=== PATIENT | female | born 1980 | race Asian ===

== ENCOUNTER 2020-03-05 09:55 | Inpatient (IN) | payer BC, OTHER ==
[~2020-03-05] VITALS: Ht 152.4 cm; Wt 71.2 kg
[2020-03-05] MEDS ORDERED: XIIDRA1 EACH OU (10:20)
--- NOTE | 2020-03-05 13:06 | NUR ---
arrived from ED via stretcher. oriented to room and call light. pt rating pain 6/10 in right upper quadrant.
--- NOTE | 2020-03-05 14:15 | NUR ---
Pt left for surgery via stretcher.
--- NOTE | 2020-03-05 14:42 | NUR ---
03/05/20 1442 Mei Robert 1438 PATIENT ARRIVES TO PACU RESTING WITH EYES CLOSED. RESP EVEN AND UNLABORED, NC AT 2 LITERS, TURNED OFF ON ARRIVAL TO PACU. PATIENT DENIES PAIN/NAUSEA.
--- NOTE | 2020-03-05 15:24 | NUR ---
PATIENT BACK TO ROOM, CLEAR LIQUID TRAY ORDERED. PATIENT MAY HAVE CLEAR LIQUIDS UNTIL MIDNIGHT, THEN NPO. PATIENT TO HAVE CHOLECYSTECTOMY TOMORROW, TO FOLLOW DR. RYAN MORAN.
[2020-03-05] MEDS ORDERED: FLAXSEED OIL1000 M1 PO (17:01)
[2020-03-05] MEDS ORDERED: FISH OIL 1,2001 EACH PO (17:01)
[2020-03-05] MEDS ORDERED: VITAMIN B-12100 MCG PO (17:01)
[2020-03-05] MEDS ORDERED: VITAMIN C1000 MG PO (17:02)
--- NOTE | 2020-03-05 17:02 | NUR ---
MED REC COMPLETE
--- NOTE | 2020-03-05 17:15 | NUR ---
IN ROOM TO ATTEMPT TO START A NEW IV. UNALBE TO GET NEW IV. PT HAD VISIOTR IN ROOM AT THIS TIME. PT DENIES ABDOMINAL PAIN OR NAUSEA AT THIS TIME.
--- NOTE | 2020-03-05 18:03 | NUR ---
pt resting in bed. denies needs at this time. call light within reach.
--- NOTE | 2020-03-05 19:09 | NUR ---
RECEIVED REPORT FROM ORQUIDEA ROMEO. pt REQUESTED CLEAR LIQUIDS, PROVIDED. WHITEBOARD UPDATED. pt REPORTED A HEADACHE, WILL CALL IF SHE WOULD LIKE PAIN MEDICATION. CALL LIGHT WITHIN REACH.
--- NOTE | 2020-03-05 20:50 | NUR ---
ROUNDED ON pt. REQUESTING PRN PAIN MEDS FOR HEADACHE BUT WISHES TO WAIT UNTIL AFTER SHE HAS AMBULATED. STEADY ON FEET. NO FURTHER REQUESTS AT THIS TIME.
--- NOTE | 2020-03-05 20:51 | NUR ---
PATIENT SITTING UP IN BEDSIDE RECLINER, REQUESTS TO AMBULATE HALLWAY. RN ALEKS AT BEDSIDE. PATIENT AMBULATES HALLWAYS AND RETURNS TO ROOM. CALL LIGHT IN REACH. NO FURTHER NEEDS AT THIS TIME.
--- NOTE | 2020-03-05 21:38 | NUR ---
pt SITTING IN CHAIR. ASSESSMENT DONE. COMPLAINED OF 8/10 HEADACHE, PRN GIVEN WITH SCHEDULED (SEE MAR). PROVIDED CLEAR LIQUIDS. NO FURTHER REQUESTS AT THIS TIME. CALL LIGHT WITHIN REACH.
--- NOTE | 2020-03-05 23:18 | NUR ---
ROUNDED ON pt. REPORTED HEADACHE "IS OKAY" REPORTED A BM, "A BIT WATERY, MEDIUM SIZE" PROVIDED A WARM BLANKET. NO FURTHER REQUESTS AT THIS TIME. CALL LIGHT WITHIN REACH.
--- NOTE | 2020-03-06 02:00 | NUR ---
pt RESTING WITH EYES CLOSED, RESPIRATIONS REGULAR AND UNLABORED. WOKE TO VOICE. VITALS AND I&O RECORDED. ASSESSMENT DONE. DENIES PAIN AT THIS TIME. CALL LIGHT WITHIN REACH.
--- NOTE | 2020-03-06 04:17 | NUR ---
ROUNDED ON pt. RESTING WITH EYES CLOSED, RESPIRATIONS REGULAR AND UNLABORED. CALL LIGHT WITHIN REACH.
--- NOTE | 2020-03-06 05:57 | NUR ---
PATIENT REQUESTED A WARM BLANKET. PATIENT GIVEN INSTRUCTIONS FOR PRE-SURGICAL CLEANSE WIPES, REQUESTS TO SLEEP FOR ANOTHER HOUR. PRE-SURGICAL WIPES AND CLEAN GOWN SET UP IN BATHROOM PER PATIENT REQUEST, PATIENT INSTRUCTED TO CALL WHEN SHE IS READY. CALL LIGHT IN REACH. RN AT BEDSIDE.
--- NOTE | 2020-03-06 05:59 | NUR ---
CALL LIGHT ON. GIVEN WIPES FOR SURGERY WITH EXPLANATORY SHEET. VITALS AND I&O RECORDED. WARM BLANKET PROVIDED. NO FURTHER REQUESTS AT THIS TIME. CALL LIGHT WITHIN REACH. pt WOULD LIKE TO SLEEP "ANOTHER HOUR" DOOR CLOSED, LIGHTS OFF.
--- NOTE | 2020-03-06 06:01 | NUR ---
pt RESTED MOST OF SHIFT. HEADACHE, PRN PAIN MED X1. IVF INFUSING. NPO AFTER MIDNIGHT. INDEPENDENT IN ROOM. GIVEN WIPES FOR SURGERY. CONSENT SIGNED AND ON CHART. USES CALL LIGHT APPROPRIATELY.
--- NOTE | 2020-03-06 08:17 | NUR ---
PT HAS BEEN UP TO THE BATHROOM, USED SURGICAL WIPES AND FRESH GROWN PLACED, CLEAN LINE ON BED. PT HAS BEEN NPO SINCE MIDNIGHT. SHE HAS BEEN FREELY MOVING ABOUT HER ROOM, PT IS VERY PRIVATE AND DOES NOT WANT STAFF HELP AT THIS TIME. BUT SHE WILLING TO TAKE HELP WHEN SHE FEELS SHE NEEDS IT.
--- NOTE | 2020-03-06 10:33 | NUR ---
PATIENT UP IN ROOM, SAT BEDSIDE FOR VITALS. VITALS AND I&OS DONE AND CHARTED. PATIENT REQUESTED NEW GOWN SHE SNEEZED A COUPLE TIME ONTO RIGHT SLEEVE OF THE ONE SHE HAD ON. CALL LIGHT WITHIN REACH. NO OTHER NEEDS
--- NOTE | 2020-03-06 10:42 | NUR ---
PT UP ABOUT IN THE ROOM NO C/O'S AT THIS TIME.
--- NOTE | 2020-03-06 11:20 | NUR ---
Spoke with Jennifer, who is well known to me. She will have surgery today. May or may not go home depending on how she feels. She lives alone in an apartment. She has friends she can call for asssitance. Denies needs to go home and does not use any DME.
--- NOTE | 2020-03-06 11:30 | NUR ---
PT LEFT TO GO TO OR AT THIS TIME. PT HAS VOIDED BEFORE.
--- NOTE | 2020-03-06 12:26 | NUR ---
PT TAKEN TO OR WILL FOLLOW
--- NOTE | 2020-03-06 14:35 | NUR ---
03/06/20 1435 Cherry Laureano 1427- PT PT PACU IN SUPINE POSITION. EYES CLOSED. RESPONDS TO VERBAL AND TACTILE STIMULUS AND FALLS QUICKLY BACK TO SLEEP. BREATHING EASY AND UNLABORED ON 6 L O2 VIA SIMPLE MASK. 5 LAP SITES CLOSED WITH STERI STRIPS INTACT AND SCANT DRAINAGE. SCDS ON. 1433- PT RESPONDS TO VERBAL STIMULI. STATES SHE IS COMFORTABLE. NODS HEAD APPROPRIATELY. BREATHING EASY AND UNLABORED. O2 TITRATED DOWN TO ROOM AIR. WILL CONTINUE TO MONITOR.
--- NOTE | 2020-03-06 14:51 | HP ---
[facility] [address] [place], [place] [address] Signed ADMISSION DATE: 03/05/2020 REASON FOR ADMISSION: Persistent abdominal pain, substernal burning and dehydration. 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 She called me last night, went home from work and noting that she was feeling poorly with upper abdominal pain, nausea, and inability to tolerate solid food. She was able to tolerate clear liquids, however. She wished to be evaluated today in the office and that was planned for this afternoon, however, she was feeling lightheaded and thought she might "pass out" and presented instead to the emergency room where she was thoroughly evaluated by Dr. Dangelo. Her complaints of pain have been in the right subcostal area radiating to the right lateral abdominal area, but not into this posterior thoracic area per se. She had evaluation for biliary disease by me in 2014, at which time an ultrasound was performed showing a "gallbladder polyp" and a CCK HIDA test was performed showing a normal ejection fraction, uncertain if there was reproduction of symptoms. The patient has concurrent symptoms of epigastric pain and what sounds like substernal burning pain. She episodically takes Prilosec, which is sometimes helpful to her. She has never taken it for very long. She does not really like to take medications if she can help it. PAST MEDICAL HISTORY: Unremarkable other than mild obesity. REVIEW OF SYSTEMS: She denies any shortness of breath or chest pain, has had no dysphagia, hematemesis, hematuria or blood per rectum. Her ultrasound performed in the emergency room today shows an unchanged gallbladder ultrasound with a 7 mm "gallbladder polyp." No sign of thickening or pericholecystic fluid. Biliary tree is normal. Liver is normal. Beta-hCG is negative. PHYSICAL EXAMINATION: GENERAL: Pleasant [place]or[place] woman, who does not look systemically toxic. HEENT: She has mildly dry mucous membranes. She was encountered beginning to sip on a chicken broth that was given to her in the emergency room. She did not have much at all Electronically Signed By: YAO DAVIS MD 03/06/20 1451 PATIENT NAME: NAIMA ANDERSEN HISTORY AND PHYSICAL DATE OF : 80 REPORT #: [id number] PHYSICIAN: YAO DAVIS MD PCP: KIRT YOST REPORT IS CONFIDENTIAL AND NOT TO BE RELEASED WITHOUT AUTHORIZATION [facility] [address] [place], [place] [address] Signed from it. NECK: Trachea is midline. CHEST: Shows normal respiratory excursion. CARDIOVASCULAR: Pulses regular. ABDOMEN: Somewhat obese, but soft. There is mild tenderness in the epigastric and right subcostal area. No peritonitis proper. She has no ascites. EXTREMITIES: Show no clubbing, cyanosis, or edema. LABORATORY STUDIES: Show white count of only 4.7, hematocrit 42.5, platelets 213,000. Chem profile shows normal electrolytes. Creatinine is 0.71. Liver enzymes appear normal. Beta-hCG is negative. Lipase is 21 (normal). Urinalysis shows specific gravity 1.002, otherwise normal. Urine bacteria are negative. SEROLOGY: COVID-19 is pending. DIAGNOSTIC DATA: Gallbladder ultrasound report, as noted by Dr. Aparicio shows no gallbladder wall thickening or gallstones. Negative Pantoja sign clinically and near the gallbladder neck is a 7 mm gallbladder polyp. It is unchanged in size compared to previous ultrasound dated 2012. Review of previous imaging including a CCK HIDA test performed in March of [address] Ling, was a 30-minute ejection fraction of 71%. There was no note made of symptoms yes or no on that study. ASSESSMENT AND PLAN: Most likely the patient does have biliary disease. Gallbladder polyps are typically adherent noncalcified, non-shadowing gallstones and although not likely to be causing obstructive process to the gallbladder or often a sign of a chronic inflammatory process of the gallbladder itself. I discussed this with the patient. She does have some conflicting symptoms of reflux, for which she has had benefit with Prilosec, but she takes it only on an episodic basis. She has no associated dysphagia. She lives alone and has been dehydrated and feeling like she would pass out. I think it is probable that her gallbladder is a problem. Rather than make consideration for repeat CCK HIDA test or other such imaging study, better to perform upper endoscopy to assess for peptic disease, H pylori, reflux, and so on. If that is present, then intensive and persistent management with H2 soraya and/or PPI medication would be undertaken. If that is entirely normal, strong consideration might be made for cholecystectomy preferred by laparoscopic approach, possibly tomorrow. The risks of bleeding, infection, and perforation related to upper endoscopy was Electronically Signed By: YAO DAVIS MD 03/06/20 3968 PATIENT NAME: NAIMA ANDERSEN HISTORY AND PHYSICAL DATE OF : [birth year] REPORT #: [id number] PHYSICIAN: YAO DAVIS MD PCP: KIRT YOST REPORT IS CONFIDENTIAL AND NOT TO BE RELEASED WITHOUT AUTHORIZATION [address] [address] Signed reviewed with her. She had been given some chicken broth in the emergency room, but only a small amount was consumed, hardly any really and had two crackers this morning. I believe, she would be safe for endoscopy in the late afternoon. In the meantime, we will keep n.p.o., give IV fluids, Pepcid IV, anticipating endoscopy and other interventions as appropriate. MD CARLO Cronin/JAEL /[id number] cc: Jeovany Dangelo MD Copies: JOEVANY ADNGELO MD ~ Electronically Signed By: YAO DAVIS MD 03/06/20 1451 PATIENT NAME: NAIMA ANDERSEN HISTORY AND PHYSICAL DATE OF : 80 REPORT #: [id number] PHYSICIAN: YAO DAVIS MD PCP: KIRT YOST REPORT IS CONFIDENTIAL AND NOT TO BE RELEASED WITHOUT AUTHORIZATION
--- NOTE | 2020-03-06 14:51 | OR ---
[facility] [address] [place], [place] [address] Signed DATE OF OPERATION: 03/05/2020 SURGEON: Yao Davis MD PREOPERATIVE DIAGNOSES: Right upper abdominal and epigastric pain, equivocal reflux-type symptoms, gallbladder ultrasound with "gallbladder polyp." POSTOPERATIVE DIAGNOSIS: Normal-appearing esophagus, stomach, and duodenum. PROCEDURE: Esophagogastroduodenoscopy with biopsy. ANESTHESIA: Intravenous sedation with fentanyl 100 mcg and versed 3 mg. 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 For the past several years (at least until 2014), she has had episodic upper abdominal pain. Evaluation in the past includes an ultrasound of the gallbladder, which showed a 7 mm gallbladder polyp (more likely nonopacified stone) and a normal ejection CCK HIDA test of 70%. The patient has episodic epigastric and upper abdominal pain including the right subcostal area. She has always clinically been suspicious for biliary disease in my evaluation. She has been prescribed Prilosec in the past, which she takes episodically and sometimes with benefit. She presented to the emergency room today having a feeling like she was "going to pass out" related to pain and so forth. Evaluation in the emergency room by Dr. Dangelo showed her to have a persistent gallbladder polyp in the infundibulum of the gallbladder, 7 mm in size. No sign of pericholecystic fluid or thickening of the gallbladder wall. Her symptoms were suggestive somewhat of peptic disease or reflux, even though I think more likely she has a biliary problem with accelerating symptoms lately. She has been admitted, fluid resuscitated, and is now to undergo upper endoscopy to better characterize the problem. If the upper endoscopy is normal, consideration will be made more strongly for cholecystectomy. FINDINGS: Esophagus, stomach, and duodenum were essentially normal. The flap valve was good. The esophageal mucosa was absolutely normal. CLOtest was equivocal at 10 minutes Electronically Signed By: YAO DAVIS MD 03/06/20 1451 PATIENT NAME: NAIMA ANDERSEN OPERATIVE REPORT DATE OF : 80 REPORT #: [id number] PHYSICIAN: YAO DAVIS MD PCP: KIRT YOST REPORT IS CONFIDENTIAL AND NOT TO BE RELEASED WITHOUT AUTHORIZATION [facility] [address] [place] [address] Signed postprocedure. There was no sign of obvious ulcer, erosion, neoplasm, or other problem. The duodenum was normal. PROCEDURE IN DETAIL: The patient was brought to the endoscopy suite and placed in lateral decubitus position after undergoing lidocaine hypopharyngeal anesthesia. Intravenous sedation was induced with fentanyl and Versed with full cardiopulmonary monitoring. A bite block was placed. An Olympus video upper endoscope was passed in the hypopharynx. The vocal cords appeared normal. The scope was advanced to the esophagus without problem throughout its length, it was entirely normal. Stomach was insufflated with air. Rugal folds appeared normal as did the antral motility. The pylorus was normal. Scope was passed through into the duodenum, which was normal. Biopsies were obtained nevertheless to assess for celiac disease. The scope was withdrawn and biopsies were then taken of the antrum and proximal stomach for both GUILLERMO and pathologic testing. Retroflexed view showed a normal flap valve. The scope was straightened, withdrawn into the distal esophagus. The mucosa was entirely normal. Narrow band imaging confirmed this as well. Biopsies were taken nevertheless. Further withdrawal of scope showed no other abnormalities. The scope was removed. The patient was taken to recovery room in good condition. CONCLUDING DIAGNOSIS: Normal-appearing upper endoscopy. Quite unlikely her symptoms recently have been peptic related. We await the CLOtest of course. Consideration will be made for laparoscopic cholecystectomy at the earliest opportunity tomorrow. We will review her options later today. MD CARLO Cronin/JAEL /[id number] cc: DEVORA Gloria MD Copies: KIRT YOST Electronically Signed By: YAO DAVIS MD 03/06/20 1451 PATIENT NAME: NAIMA ANDERSEN OPERATIVE REPORT DATE OF : 80 REPORT #: [id number] PHYSICIAN: YAO DAVIS MD PCP: KIRT YOST REPORT IS CONFIDENTIAL AND NOT TO BE RELEASED WITHOUT AUTHORIZATION [facility] [address] [place] [address] Signed TODD DANGELO MD ~ Electronically Signed By: YAO DAVIS MD 03/06/20 1451 PATIENT NAME: NAIMA ANDERSEN OPERATIVE REPORT DATE OF : 80 REPORT #: [id number] PHYSICIAN: YAO DAVIS MD PCP: KIRT YOST REPORT IS CONFIDENTIAL AND NOT TO BE RELEASED WITHOUT AUTHORIZATION
--- NOTE | 2020-03-06 15:05 | PATH ---
[facility] [address] [place], [place] [address] Signed SPECIMEN(S): A DUODENUM SPECIMEN(S): B ANTRUM/ANTRAL BIOPSY SPECIMEN(S): C ESOPHAGEAL BIOPSY SPECIMEN SOURCE: A. DUODENUM B. ANTRUM/ANTRAL BIOPSY C. ESOPHAGEAL BIOPSY CLINICAL HISTORY: Nausea; bloating. Post-op: Normal exam. MICROSCOPIC DESCRIPTION: Histologic sections of all submitted blocks are examined by light microscopy. These findings, together with the gross examination, support the pathologic diagnosis. FINAL PATHOLOGIC DIAGNOSIS: A. Duodenum, biopsy: - Duodenal mucosa with no histopathologic abnormality. - Negative for increased intraepithelial lymphocytes. - Negative for dysplasia or malignancy. B. Stomach, antrum, biopsy: - Oxyntic mucosa with no histopathologic abnormality. - Negative for Helicobacter organisms on HE stain. - Negative for dysplasia or malignancy. C. Esophagus, biopsy: - Squamous mucosa with minimal chronic inflammation. - Negative for intestinal metaplasia, dysplasia or malignancy. NAL:mfr:C2NR GROSS DESCRIPTION: Three specimens are received in three containers, labeled "EF." A. The specimen, labeled "EF, duodenal biopsy," is received in formalin and consists of one garcía soft tissue fragment(s) that measure 0.3 cm in greatest dimension. The specimen is entirely submitted in cassette (A1). B. The specimen, labeled "EF, antrum biopsy," is received in formalin and consists of one garcía soft tissue fragment(s) that measure 0.3 cm in greatest dimension. The specimen is entirely submitted in cassette (B1). C. The specimen, labeled "EF, distal esophagus biopsy," is received in PATIENT NAME: NAIMA ANDERSEN PATHOLOGY DATE OF : 80 REPORT #: [id number] PHYSICIAN: PRASHANT ZAMARRIPA PCP: KIRT YOST REPORT IS CONFIDENTIAL AND NOT TO BE RELEASED WITHOUT AUTHORIZATION [facility] [address] [place] [address] Signed formalin and consists of two garcía soft tissue fragment(s) that measure 0.2 cm in greatest dimension. The specimen is entirely submitted in cassette (C1). JS (under the direct supervision of a pathologist) The Gross Description was prepared using a voice recognition system. The report was reviewed for accuracy; however, sound-alike word errors, addition and/or deletions may occur. If there is any question about this report, please contact Client Services. PERFORMING LABORATORY: The technical component was performed by [facility] [address] (Manager Talent: Vi Oseguera MD; CLIA# [id number]). Professional interpretation was performed by [employer] [facility], [address] [place] [id number] (CLIA# [id number]). Diagnostician: Helena Velasco MD Pathologist Electronically Signed 03/06/2020 Copies: ~ PATIENT NAME: NAIMA ANDERSEN PATHOLOGY DATE OF : 80 REPORT #: [id number] PHYSICIAN: PRASHANT ZAMARRIPA PCP: KIRT YOST REPORT IS CONFIDENTIAL AND NOT TO BE RELEASED WITHOUT AUTHORIZATION
--- NOTE | 2020-03-06 15:49 | NUR ---
PT RETURNED FRO PACU AND AWAKE AND ALERT FOR A PSOT-OP. PT C/O NAUSEA AND PAIN MEDICATED WITH 4MG ZOFRAN AND 2MG MORPHINE FOR PAIN 04/03. SSTRIPS IN PLACE WITH SOME RED IN COLOR DRAINAGE AT THE [place] AREA.
--- NOTE | 2020-03-06 16:03 | NUR ---
PT APPEARS TO BE SLEEPING AND RESTING COMFORTABLE AT THIS TIME. SPO2 92% ON ROOM AIR AT THIS TIME.
--- NOTE | 2020-03-06 16:45 | NUR ---
PT RETURNED FOR PACU AND IS AWAKE AND WAS MEDICATED WITH 4MG ZOFRAN AND 2MG MORPHINE, SHE WAS ABLE TO EAT SOME ICE CHIPS.
--- NOTE | 2020-03-06 16:45 | NUR ---
PT WANTED TO SIT AT THE EDGE OF THE BED, DID WELL WITH GETTING UP TO THE EDGE AND SHE WANTED A PULL-UP ON AND STOOD, FRESH GROWN ON AND SHE WAS ETTING SOME ICE CHIPS. ALSO MEDICATED WITH 2MG MORPHINE FOR HER ACTIVITY.
--- NOTE | 2020-03-06 17:42 | NUR ---
PT REMAINS AT THE EDGE OF THE BED AND FREIND INTO VISIT AT THIS TIME. PT DOING OKAY NO C/O'S
--- NOTE | 2020-03-06 17:47 | NUR ---
PATENT SITTING BEDSIDE WORKING ON CUP OF ICE. VITALS AND I&OS DONE AND CHARTED. ORQUIDEA SALAZAR ORDERED DINNER FOR PATIENT. CALL LIGHT IN REACH NO OTHER NEEDS. VISITOR IN ROOM
--- NOTE | 2020-03-06 17:54 | NUR ---
PT REMAINS SITTING UP AT THE EDGE OF THE BED, SHE WANTED TO CHICKEN NOODLE SOUP FOR DINNER. PT HAS BEEN EATTING ICE CHIPS WITH NO N/V NOTED.
--- NOTE | 2020-03-06 18:37 | NUR ---
PT HAS BEEN UP TO THE BATHROOM VOIDED AND BACK TO BED. AMBULATED WITHOUT ASSISTANCE. ATE HER CHICKEN NODDLE SOUP. AND IS TAKING PO ORALS WELL. JUSICE GIVEN AND ICE WATER.
--- NOTE | 2020-03-06 19:26 | NUR ---
ROUNDED ON pt. REPORTED 5/10 PAIN. PRN GIVEN (SEE MAR). EDUCATED ON PAIN MANAGEMENT. LAP SITE INTACT AND DRY DRAINAGE NOTED. NO REQUESTS AT THIS TIME. CALL LIGHT WITHIIN REACH. POST OP VITALS RECORDED.
--- NOTE | 2020-03-06 22:02 | NUR ---
ASSESSMENT DONE. NO CHANGES IN LAP SITES. pt REPORTED 0/10 PAIN AT REST, 5/10 PAIN WHEN MOVING. MEDICATIONS GIVEN (SEE MAR). pt UP TO VOID AND AMBULATING IN FAROOQ WITH HOTEL RECREATIONAL FACILITIES MANAGER.
--- NOTE | 2020-03-06 23:01 | NUR ---
VITALS AND I&OS DONE AND CHARTED. PER PT REQUEST I WALKED WITH HER AROUND MED SURG FOR 1 LAP. GOT HER BACK INTO BED.
--- NOTE | 2020-03-06 23:04 | NUR ---
PER PT REQUEST I WALKED AROUND MED SURG FLOOR FOR 3 LAPS. GOT PT BACK INTO BED PUT SCD'S ON . GOT HER MORE TISSUES. BEDSIDE TABLE AND CALL LIGHT IN REACH. PT NEEDS NOTHING MORE AT THIS TIME.
--- NOTE | 2020-03-07 00:20 | NUR ---
ROUNDED ON pt. RESTING WITH EYES CLOSED, RESPIRATIONS REGULAR AND UNLABORED. CALL LIGHT WITHIN REACH.
--- NOTE | 2020-03-07 01:07 | NUR ---
CALL LIGHT ON. IV PUMP BEEPING, NEW BAG OF FLUIDS HUNG (SEE MAR). pt DENIES PAIN AT REST. VITALS AND I&O RECORDED. pt UP TO VOID. AMBULATING IN FAROOQ WITH CUSTOMS DIRECTOR.
--- NOTE | 2020-03-07 01:26 | NUR ---
VITALS AND I&OS DONE AND CHARTED. STOOD BY PT WENT TO THE BATHROOM. ALSO WALKED 5 LAPS AROUND MEDSURG FLOOR WITH PT PER HER REQUEST. SCD'S PUT BACK ON AND TWO WARM BLANKETS GIVEN. BEDSIDE TABLE AND CALL LIGHT IN REACH. PT NEEDS NOTHING MORE AT THIS TIME.
--- NOTE | 2020-03-07 01:39 | NUR ---
pt REQUESTED PRN PAIN MEDS, GIVEN (SEE MAR). pt RESTING IN BED. ASSESSMENT DONE. NO FURTHER REQUESTS AT THIS TIME. CALL LIGHT WITHIN REACH.
--- NOTE | 2020-03-07 03:36 | NUR ---
ROUNDED ON pt. RESTING WITH EYES CLOSED, RESPIRATIONS REGULAR AND UNLABORED. CALL LIGHT WITHIN REACH.
--- NOTE | 2020-03-07 06:40 | NUR ---
VITALS AND I&OS DONE AND CHARTED. STOOD BY PT USED THE BATHROOM. ORQUIDEA FINK WAS IN THE ROOM WHEN I LEFT.
--- NOTE | 2020-03-07 06:44 | NUR ---
ROUNDED ON pt. REPORTED 5/10 PAIN, PRN MEDICATION GIVEN (SEE MAR). LAP SITES UNCHANGED. CALL LIGHT WITHIN REACH.
--- NOTE | 2020-03-07 06:45 | NUR ---
pt RESTED ON AND OFF DURING SHIFT. AMBULATED IN HALLS MULTIPLE TIMES. BOWEL TONES ACTIVE. REPORTS PASSING GAS. PAIN CONTROLLED WITH PRN MEDS X4. LAP SITES INTACT HAVE DRY DRAINAGE. IVF INFUSING. SBA. USES CALL LIGHT APPROPRIATELY.
--- NOTE | 2020-03-07 07:35 | NUR ---
PATIENT SITTING UP IN CHAIR. IV WRAPPED. SETS UP BATHROOM FOR SHOWER. WARM BLANKETS PROVIDED. CALL LIGHT WITHIN REACH. NO OTHER NEEDS AT THIS TIME
--- NOTE | 2020-03-07 08:02 | NUR ---
AWAKE EARLY, INTO SHOWER, IN GOOD SPIRITS THIS AM, HOPES TO GO HOME, PAIN CONTROLLED, ACTIVE AND MOVING WELL, TOLERATING DIET. DENIES ANY CONCERNS OR NEEDS.
--- NOTE | 2020-03-07 09:37 | NUR ---
PATIENT SITTING UP IN CHAIR. VITAL SIGNS AND I&O DONE. CALL LIGHT WITHIN REACH. NO OTHER NEEDS AT THIS TIME
[2020-03-07] MEDS ORDERED: IBUPROFEN600 MG PO (12:14)
[2020-03-07] MEDS ORDERED: TYLENOL EXTRA500 MG PO (12:14)
[2020-03-07] MEDS ORDERED: OXYCODON-ACETA1 EAC2 PO (12:14)
--- NOTE | 2020-03-07 12:52 | OR ---
[facility] [address] [place], [place] [address] Signed DATE OF OPERATION: 03/06/2020 SURGEON: Yao Davis MD PREOPERATIVE DIAGNOSIS: [id number] calculous cholecystitis. POSTOPERATIVE DIAGNOSIS: Gdghg-gy-bngnjhb calculous cholecystitis. PROCEDURES: 1. Laparoscopic cholecystectomy with intraoperative cholangiogram. 2. Surgeon-directed fluoroscopy. ANESTHESIA: General endotracheal; Yao Damon CRNA and Fox Earl CRNA, and local 20 mL of 0.25% Marcaine with epinephrine. 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 She has had several years going back to at least 2014 of episodic right upper abdominal and epigastric pain. Evaluation in the past has included a gallbladder ultrasound and CCK HIDA test, which were normal except for a "gallbladder polyp." The patient was not persistently troubled by symptoms, however, was admitted to the hospital after evaluation by me from her emergency room visit yesterday with rather severe epigastric and right subcostal pain with some radiation into the right lateral abdominal wall. The patient also described what sounded like reflux disease. She was admitted by me, underwent upper endoscopy yesterday showing perfectly normal esophagus, stomach, and duodenum. An ultrasound had been repeated through the emergency room yesterday, which showed similar findings as to the past including a normal gallbladder wall, but with a 7 mm "gallbladder polyp." It is my presumption, given her symptoms and findings on ultrasound, and known course of illness over the past 5 years that this does represent vedzb-sj-ijneqmm calculous cholecystitis. On that basis, she has been recommended to consider laparoscopic cholecystectomy with cholangiogram, possible open procedure. She understands the risks of bleeding, infection, bile duct injury, and most importantly failure to cure her symptoms depending on findings. She understands and she wished to proceed. Electronically Signed By: YAO DAVIS MD 03/07/20 1252 PATIENT NAME: NAIMA ANDERSEN OPERATIVE REPORT DATE OF : 80 REPORT #: [id number] PHYSICIAN: YAO DAVIS MD PCP: KIRT YOST REPORT IS CONFIDENTIAL AND NOT TO BE RELEASED WITHOUT AUTHORIZATION [facility] [address] [place], [place] [address] Signed FINDINGS: The liver was normal. The gallbladder was edematous and chronically inflamed. There was no gangrenous change by any means. The uterus, fundus appeared normal. The gallbladder once excised, showed cholesterol stone debris and the polyp was found indeed to be a cholesterol aggregate (cholesterol polyp or adherent noncalcified stone). Cholangiogram was normal. DESCRIPTION OF PROCEDURE: The patient was taken to the operating room, given a general endotracheal anesthetic. Preoperative antibiotic Ancef was given. Sequential compression device stockings were used. After general endotracheal anesthesia was induced, the abdomen was clipped and prepared with a chlorhexidine solution and draped sterilely. An infraumbilical incision was made and using an open Carmelo cannula technique pneumoperitoneum was achieved to a level of 14 mmHg of carbon dioxide gas. Intraabdominal inspection showed no sign of ascites or carcinomatosis. The liver appeared normal. The gallbladder was somewhat distended and edematous and acutely inflamed, but not severely so. Three additional trocars were placed in usual configuration in the subxiphoid, right midclavicular, and right anterior axillary line. The gallbladder was elevated cephalad and retracted laterally. Using blunt and electrocautery dissection, the triangle of Calot was dissected free, identifying well the cystic artery and cystic duct. A clip was applied across gallbladder cystic duct junction and a transverse choledochotomy made in the cystic duct. Using an Dougherty type cholangiocatheter, intraoperative cholangiography was undertaken with surgeon-directed fluoroscopy showing free flow of contrast in biliary tree with prompt emptying into the duodenum. The catheter was removed and the cystic duct was triply clipped and divided, and the gallbladder dissected free in a retrograde fashion using electrocautery. Entry into the gallbladder allowed for spillage of some dark bile, but no spillage of stones per se. The gallbladder was extracted through the infraumbilical port site, securing the rent in the gallbladder, opened on the back table and found to have chronic inflammatory change of the mucosa and a fair amount of cholesterol debris (non-adherent stones). Irrigation was undertaken in subhepatic space. Excess irrigation fluid was suctioned free. The trocars were removed under direct visualization showing no sign of bleeding. The infraumbilical fascial incision was reapproximated with interrupted 0 Vicryl suture as well as a running 0 PDS suture. A 20 mL of 0.25% Marcaine with epinephrine was injected locally. The skin was closed with interrupted 3-0 Vicryl. Steri-Strips were applied and she was ultimately extubated and transferred to recovery room in good condition. Sponge, needle, and counts reported as correct x3. Electronically Signed By: YAO DAVIS MD 03/07/20 1252 PATIENT NAME: NAIMA ANDERSEN OPERATIVE REPORT DATE OF : 80 REPORT #: [id number] PHYSICIAN: YAO DAVIS MD PCP: KIRT YOST REPORT IS CONFIDENTIAL AND NOT TO BE RELEASED WITHOUT AUTHORIZATION [facility] [address] [place] [address] Signed Yao Davis MD /JAEL /[id number] cc: DEVORA Gloria MD Copies: KIRT YOST WILLIAM S MD ~ Electronically Signed By: YAO DAVIS MD 03/07/20 1252 PATIENT NAME: NAIMA ANDERSEN OPERATIVE REPORT DATE OF : 80 REPORT #: [id number] PHYSICIAN: YAO DAVIS MD PCP: KIRT YOST REPORT IS CONFIDENTIAL AND NOT TO BE RELEASED WITHOUT AUTHORIZATION
--- NOTE | 2020-03-07 13:14 | NUR ---
PATIENT SITTING UP IN BED. VITAL SIGNS AND I&O DONE BEFORE PATIENT WAS DISCHARGED FROM THE UNIT
--- NOTE | 2020-03-07 13:20 | NUR ---
DISCHARGE INSTRUCTIONS REVIEWED WITH PATIENT, VERBALIZES UNDERSTANDING OF MEDICATIONS AND FOLLOWUP APPOINTMENT, DC TO HOME AT THIS TIME.
--- NOTE | 2020-03-09 11:42 | PATH ---
[facility] [address] [facility] [place], [place] [address] Signed SPECIMEN(S): A GALLBLADDER AND STONES SPECIMEN SOURCE: A. GALLBLADDER AND STONES CLINICAL HISTORY: Abdominal pain. FINAL PATHOLOGIC DIAGNOSIS: Gallbladder, cholecystectomy: - Chronic cholecystitis with cholesterol polyps. NAL:emb:C2NR MICROSCOPIC EXAMINATION: Histologic sections of all submitted blocks are examined by light microscopy. These findings, together with the gross examination, support the pathologic diagnosis. GROSS DESCRIPTION: The specimen, labeled "EF," and designated on the requisition "gallbladder plus stones," is received in formalin and consists of Specimen: Briefly opened gallbladder. Dimensions: 6.7 x 2.5 x 1.0 cm. Serosa: [place]-garcía to green garcía and smooth. Cystic Duct: unobstructed. Calculi: Not grossly identified. Mucosa: Green brown and velvety. Wall thickness: 0.3 cm. Lymph node: No pericystic lymph nodes are grossly identified. Additional: Multiple yellow-garcía bosselated soft to friable polypoid lesions (ranging in size from 0.1-0.7 cm) with the closest located 1.7 cm from the cystic duct margin. Sales Assistant Displays sections are submitted in cassette (A1). AC (under the direct supervision of a pathologist) The Gross Description was prepared using a voice recognition system. The report was reviewed for accuracy; however, sound-alike word errors, addition and/or deletions may occur. If there is any question about this report, please contact Client Services. PERFORMING LABORATORY: The technical component was performed by [employer], Jacques Begum, PATIENT NAME: NAIMA ANDERSEN PATHOLOGY DATE OF : 80 REPORT #: [id number] PHYSICIAN: PRASHANT ZAMARRIPA PCP: KIRT YOST REPORT IS CONFIDENTIAL AND NOT TO BE RELEASED WITHOUT AUTHORIZATION [facility] [address] [place], [place] [address] [place] [address] (Canvas Repairer: Vi Oseguera MD; CLIA# [id number]). Professional interpretation was performed by [facility], [address] [address] (CLIA# [id number]). Diagnostician: Helena Velasco MD Pathologist Electronically Signed 03/09/2020 Copies: ~ PATIENT NAME: NAIMA ANDERSEN PATHOLOGY DATE OF : 80 REPORT #: [id number] PHYSICIAN: PRASHANT ZAMARRIPA PCP: KIRT YOST REPORT IS CONFIDENTIAL AND NOT TO BE RELEASED WITHOUT AUTHORIZATION
--- NOTE | 2020-03-10 10:11 | DS ---
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 She called in the night prior to her presentation to the emergency room as she had gone home from work, not feeling well with upper abdominal pain, nausea, and feeling like she might "pass out." She was planning to be evaluated in my office the day of admission, but felt worse and presented to the emergency room, where she was thoroughly evaluated by Dr. Dangelo. Her complaints of pain have been in the right subcostal area radiating to the right lateral abdominal area as well as some substernal burning pain and epigastric pain. She has undergone biliary evaluation in 2014, which at that time included ultrasound showing a gallbladder polyp and a CCK HIDA test performed showing a normal ejection fraction. Her examination in the emergency room by me showed her to be not in her typical way, and although not systemically toxic. She had dry mucous membranes and could not appear to be well on that basis. She is admitted for further evaluation and care. PERTINENT PHYSICAL EXAMINATION: GENERAL: Pleasant, [place] woman, who did not look systemically toxic. HEENT: She had mildly dry mucous membranes. NECK: Trachea is midline. CHEST: Clear. HEART: Regular, without murmur. ABDOMEN: Obese, but soft. There is mild tenderness in the epigastric and right subcostal area. No peritonitis proper. She had no ascites. LABORATORY DATA: White count was only 4.7, hematocrit 42.5, and platelets 213,000. Chem profile was normal. Creatinine 0.71. Liver enzymes normal. Beta-hCG negative. COVID testing was pending. HOSPITAL COURSE: An ultrasound had been performed under the direction of Dr. Dangelo and interpreted by Dr. Aparicio, showing no gallbladder wall thickening or gallstones. It is noted a CCK-HIDA test performed in March of 2015 showed an ejection fraction at 30 minutes of 71%. She had an unchanged gallbladder on the ultrasound with a 7 mm "polyp." Electronically Signed By: YAO DAVIS MD 03/10/20 1011 PATIENT NAME: NAIMA ANDERSEN DISCHARGE SUMMARY DATE OF : 80 REPORT #: [id number] PHYSICIAN: YAO DAVIS MD PCP: KIRT YOST REPORT IS CONFIDENTIAL AND NOT TO BE RELEASED WITHOUT AUTHORIZATION [facility] [address] [place], [place] [address] Signed HOSPITAL COURSE: She was admitted, and strongly this represented biliary disease despite the aforementioned findings. Since, she did have what sounded like substernal burning epigastric pain, she underwent upper endoscopy. This was found to be completely normal including the esophagus, stomach, and duodenum. She was given intravenous fluids and consideration was made for cholecystectomy to be performed. On March 06, 2020, she underwent laparoscopic cholecystectomy with intraoperative cholangiogram. Indeed, the gallbladder did look to be inflamed. The mucosa had non-adherent cholesterol type stone debris. Cholangiogram was normal. The liver was entirely normal. The fundus of the uterus was normal. Postoperatively, she did quite well. She had marked improvement of her symptoms, and by the time of discharge she is ambulating well, tolerating a regular diet, has incisional pain well controlled with oral analgesics. FOLLOWUP PLAN: She is to return to see me in a month or so in the office. She will be discharged with Motrin, Tylenol, and a small amount of Percocet as needed. As regard to her work as a physical , she does a fair amount of lifting, including patient lifting therefore an excuse for a work will be made for two weeks that she can present to Human Resources. DISCHARGE DIAGNOSES: 1. Acute calculous cholecystitis, status post laparoscopic cholecystectomy with intraoperative cholangiogram. 2. Upper abdominal symptoms with no finding on upper endoscopy to show peptic disease. 3. Obesity. MD CARLO Cronin/JAEL /[id number] Electronically Signed By: YAO DAVIS MD 03/10/20 1011 PATIENT NAME: NAIMA ANDERSEN DISCHARGE SUMMARY DATE OF : 80 REPORT #: [id number] PHYSICIAN: YAO DAVIS MD PCP: KIRT YOST REPORT IS CONFIDENTIAL AND NOT TO BE RELEASED WITHOUT AUTHORIZATION [facility] [address] [place] [id number] Signed cc: MD Kirt Corea PA Copies: TODD DANGELO MD, LINDA PA ~ Electronically Signed By: YAO DAVIS MD 03/10/20 1011 PATIENT NAME: NAIMA ANDERSEN DISCHARGE SUMMARY DATE OF : 80 REPORT #: [id number] PHYSICIAN: YAO DAVIS MD PCP: KIRT YOST REPORT IS CONFIDENTIAL AND NOT TO BE RELEASED WITHOUT AUTHORIZATION
== END 2020-03-07 13:05 | disposition home or self-care (01) | DRG 419 ==
LOC: ED 09:55 → MS 09:56 → ED 09:56 → MS 13:37
PROVIDERS: ADMIT Surgery
PROC: 0DB78ZX Excision of Stomach, Pylorus, Via Natural or Artificial Opening Endoscopic, Diagnostic (ICD-10-PCS; 2020-03-05)
PROC: 0DB68ZX Excision of Stomach, Via Natural or Artificial Opening Endoscopic, Diagnostic (ICD-10-PCS; 2020-03-05)
PROC: 0DB98ZX Excision of Duodenum, Via Natural or Artificial Opening Endoscopic, Diagnostic (ICD-10-PCS; principal; 2020-03-05 14:30)
PROC: 0FT44ZZ Resection of Gallbladder, Percutaneous Endoscopic Approach (ICD-10-PCS; 2020-03-06)
PROC: BF101ZZ Fluoroscopy of Bile Ducts using Low Osmolar Contrast (ICD-10-PCS; 2020-03-06)
DX: K80.12 Calculus of gallbladder with acute and chronic cholecystitis without obstruction (principal); H04.129 Dry eye syndrome of unspecified lacrimal gland; E66.9 Obesity, unspecified; Z20.828 Contact with and (suspected) exposure to other viral communicable diseases; E86.0 Dehydration; Z68.30 Body mass index [BMI] 30.0-30.9, adult; Z79.899 Other long term (current) drug therapy
CPT/HCPCS: 00790; 74300; 76705; 80053; 81001; 83690; 84703; 85025; 96361; 96374; 96375; 99285-25; A9270; C9803; G0500; J0330; J0690; J1100; J1885; J2001; J2250; J2270; J2405; J2704; J3010; J7040; J7121; Q9967; U0002